=== PATIENT | male | born 1970 | race Caucasian/White ===

== ENCOUNTER 2025-04-27 10:10 | Day surgery (SDC) | payer OTHER ==
[~2025-04-27] VITALS: Ht 170.2 cm; Wt 89.9 kg
[2025-04-27] VITALS (16 sets, daily range): BP systolic 119–164; BP diastolic 83–97
[~2025-04-27 10:10] MED LIST: CeFAZolin Sodium 2,000 MG in NS 100 ML IV SCH
[2025-04-27] MEDS ORDERED: Ondansetron HCl 2 MG / ML 2ML Vial IV PRN (11:00)
[2025-04-27] MEDS ORDERED: FentaNYL Citrate 50 MCG/ML 2 ML Injection IV PRN ×2 (11:00→11:05)
[2025-04-27] MEDS ORDERED: Morphine Sulfate 4 MG/1 ML Injection IV PRN (11:05)
[2025-04-27] MEDS ORDERED: Metoclopramide HCl 5MG / ML 2ML Vial IV PRN (11:05)
[2025-04-27] MEDS ORDERED: HYDROmorphone HCl/Pf 1MG SYR IV PRN (11:05)
--- NOTE | 2025-04-27 11:24 | NUR ---
Ambulatory in Day Surgery. Lungs clear T/O to Auscultation. History, Chart, Medications and Allergies reviewed before start of procedure. Surgical site prepped with 2% Chlorhexidine cloth wipe. Patient reports completing Chlorhexadine shower X2 prior to admission to hospital. Patient States Post-Procedure ride home has been arranged. at bedside, pt gave his glassess to his .
[2025-04-27] MEDS ORDERED: Bupivacaine 0.5% HCl 5 MG/ML 30MLVIAL ONE (11:39)
[2025-04-27] MEDS ORDERED: FentaNYL Citrate 50 MCG/ML 5 ML Injection ONE (11:48)
[2025-04-27] MEDS ORDERED: Ondansetron HCl 2 MG / ML 2ML Vial ONE (12:10)
[2025-04-27] MEDS ORDERED: Metoclopramide HCl 5MG / ML 2ML Vial ONE (12:10)
[2025-04-27] MEDS ORDERED: Labetalol HCL 5 MG/ML 4ML Injection (Single Dose) ONE (12:29)
[2025-04-27] MEDS ORDERED: Sugammadex Sodium 200 MG/2ML SDV (100 MG/ML) ONE (13:43)
[2025-04-27] MEDS ORDERED: FentaNYL Citrate 50 MCG/ML 2 ML Injection ONE (13:55)
[2025-04-27] MEDS ORDERED: HYDROmorphone HCl/Pf 1MG SYR ONE (14:05)
[2025-04-27] MEDS ORDERED: OxyCODONE 5 mg/Acetamin 325 mg TABLET PO PRN (14:25)
--- NOTE | 2025-04-27 14:41 | NUR ---
INTO STEP VIA TONEY. PT A&O X 4. PT REPORTS 5/10 ABDOMINAL PAIN. DENIES NAUSEA. RIGHT QUADRANT PORT SITE X 3 WITH EXOFER C/D/I. UMBILICAL SITE WITH OCCLUSIVE DRESSING C/D/I. PT GIVEN APPLE JUICE AND CHEESE AND CRACKERS PER HIS REQUEST.
--- NOTE | 2025-04-27 15:27 | NUR ---
REPORTS 7/10 ABDOMINAL/INCISIONAL PAIN DESPITE BEING MEDICATED WITH PERCOCET-SEE EMAR. PT GIVEN FENTANYL 25 MCG IVP X 1 AND ADDITIONAL PERCOCET PO-SEE EMAR.
--- NOTE | 2025-04-27 15:43 | NUR ---
PT REPORTS PAIN LEVEL IS NOW 4/10 WHICH IS A TOLERABLE LEVEL. PT AMBUL[facility] TO [facility] WITHOUT DIFFICULTY. REVIEWED DISCHARGE INSTRUCTIONS WITH PT AND S/O SHANTELL. PT DISCHARGED TO HOME, OUT VIA WHEELCHAIR WITH DISHCHARGE INSTRUCTIONS, RX, AND BELONGINGS ON HAND.
== END 2025-04-27 15:43 | disposition home or self-care (01) ==
LOC: ORSCMMR 10:10 → ORD 11:45 → ORSCMMR 15:43
PROVIDERS: Surgery
PROC: 0WUF4JZ Supplement Abdominal Wall with Synthetic Substitute, Percutaneous Endoscopic Approach (ICD-10-PCS; principal; 2025-04-27 11:45)
PROC: 8E0W4CZ Robotic Assisted Procedure of Trunk Region, Percutaneous Endoscopic Approach (ICD-10-PCS; principal; 2025-04-27 11:45)
DX: K43.6 Other and unspecified ventral hernia with obstruction, without gangrene (principal); K42.0 Umbilical hernia with obstruction, without gangrene; M62.08 Separation of muscle (nontraumatic), other site
CPT/HCPCS: A9270; C1781; J0690; J1171; J2405; J2704; J2765; J3010; J7120